=== PATIENT | female | born 2000 | race Caucasian/White ===

== ENCOUNTER 2022-03-18 10:45 | Emergency (ER) | payer OTHER, SELFPAY ==
[2022-03-18 11:01] VITALS: BP 131/89; PULSE 90; TEMP 36.4; BMI 23.6
--- NOTE | 2022-03-18 11:36 | ED.NAVMDI ---
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 She feels that she is a little behind on fluids as result of this. She also reports that she had some upper respiratory symptoms for the past couple days and did test herself twice for COVID with negative results. She states that those symptoms have improved. She comes in primarily because of the vomiting episodes. She is otherwise in good health. She has not had any fevers. She does not report any shortness of breath. Related Data Previous Rx's Medication Instructions Recorded ondansetron HCl 4 mg tablet 4 mg PO Q6H #10 tabs 03/18/22 Allergies Allergy/AdvReac Type Severity Reaction Status Date / Time No Known Drug Allergies Allergy Verified 03/18/22 11:00 Review of Systems Status of ROS: Reports: 10 or more systems reviewed and unremarkable except as noted in History and below Narrative: Constitutional: No fevers, no weight gain or loss. Eyes: No discharge. No vision changes. HENT: No congestion, no sore throat, no ear pain. Cardiovascular: No chest pain, no palpitations. Respiratory: No shortness of breath, no wheezes, no cough. Gastrointestinal: No abdominal pain. Nausea with several vomiting episodes and 1 diarrhea episode. Genitourinary: No dysuria, no hematuria. Musculoskeletal: Normal range of motion. Skin: No rashes, no pruritis. Neurological: No dizziness, weakness, sensory change, speech change. Endo/Heme/Allergies: No bruising or bleeding. No polydipsia. Pysch: no suicidality, no anxiety, no insomnia. All other systems reviewed and are negative. PFSH PFSH Social History Smoking Status: Never smoker Do you use any of these nicotine containing products: None Second hand tobacco smoke exposure: No How often do you have a drink containing alcohol: monthly or less How many standard drinks containing alcohol do you have on a typical day: 1 or 2 How often do you have six or more drinks on one occasion: Never AUDIT-C Alcohol total score: 1 Non-prescribed substance use: denies use service: No Exam Narrative: Exam Narrative: Constitutional: Well-developed, well-nourished, no acute distress. HEENT: Normocephalic, atraumatic. Neck: Normal range of motion. Nontender. Supple. Heart: Regular. No murmurs. Normal rate. Intact distal pulses. Lungs: Clear to auscultation. No chest discomfort. No wheezes, rhonchi, or rales. Abdomen: Normal bowel sounds. Nontender. No rebound tenderness. Genitalia: Deferred. Back: No midline tenderness. Normal range of motion. Extremities: Normal range of motion. No injury. Skin: Intact. No rash. Warm. No erythema or pallor. Neurologic: No altered sensation. No weakness. Alert and oriented. Psychiatric: No suicidality. No anxiety or depression. No insomnia. Nursing notes and vitals signs are reviewed. Const: Vital Signs, click to edit/add: Vital Signs - 24 hr 03/18/22 11:01 Temperature 97.5 F L Pulse Rate [Pulse Oximeter] 90 Blood Pressure [Le ft Upper Arm] 131/89 Oxygen Delivery Me thod Room Air Course Vital Signs Vital signs: Initial Vital Signs Temperature 97.5 F L 03/18/22 11:01 Temperature Source Temporal Artery Scan 03/18/22 11:01 Pulse Rate 90 03/18/22 11:01 Pulse Rhythm 03/18/22 11:01 Blood Pressure 131/89 03/18/22 11:01 Blood Pressure Mean 103 03/18/22 11:01 Blood Pressure Position Supine 03/18/22 11:01 Oxygen Delivery Method 03/18/22 11:01 Vital Signs Temperature 97.5 F L 03/18/22 11:01 Pulse Rate 90 03/18/22 11:01 Blood Pressure 131/89 03/18/22 11:01 Oxygen Delivery Method 03/18/22 11:01 Temperature 97.5 F L 03/18/22 11:01 Pulse Rate 90 03/18/22 11:01 Blood Pressure 131/89 03/18/22 11:01 Oxygen Delivery Method 03/18/22 11:01 MDM - Nausea/Vomiting/Diarrhea MDM Narrative Medical decision making narrative: This patient received a L of normal saline and 4 mg of Zofran intravenously in this brought significant relief to her symptoms. She states that her appetite has returned and does not feel nauseated. I did discuss lab studies also with the patient which she declined in a process of shared decision making. She is okay to return home. She did receive a prescription for some tablets of Zofran. Discharge Plan Discharge Clinical Impression: Gastroenteritis Patient Disposition: Home, Self-Care Condition: Improved Additional Instructions: Take medication as needed and prescribed. Increase diet and liquids as tolerated. Follow up with MD or return if worsening. Prescriptions: New ondansetron HCl 4 mg tablet 4 mg PO Q6H Qty: 10 0RF Follow Up/Referrals: Provider,Not a Local [Primary Care Provider] - Stand Alone Forms: [employer] Info Instructions
[2022-03-18] MEDS: ONDANSETRON 2 MG/ML inj 4 MG IVP (12:13)
[2022-03-18] MEDS: 0.9 % SODIUM CHLORIDE 1000 ml 1,000 ML IV (12:13)
== END 2022-03-18 14:37 | disposition home or self-care (01) ==
PROVIDERS: Emergency Provider Emergency Medicine Emergency Medical Services
DX: K52.9 Noninfective gastroenteritis and colitis, unspecified (principal)
CPT/HCPCS: 96361; 96374; 99284; J2405; J7030